=== PATIENT | male | born 2000 | race Caucasian/White ===

== ENCOUNTER → 2022-07-11 | Outpatient (CLI) | payer BC | LOC: COL.VAS 13:00 | DX: R55 Syncope and collapse (principal); R07.9 Chest pain, unspecified ==

== ENCOUNTER → 2022-07-15 | Outpatient (CLI) | payer BC | LOC: COL.RAD 14:28 | DX: S09.90XA Unspecified injury of head, initial encounter (principal); X58.XXXA Exposure to other specified factors, initial encounter ==